=== PATIENT | male | born 1960 | race Caucasian/White ===

== ENCOUNTER → 2021-09-19 | Outpatient (REF) | payer OTHER | LOC: M SFHCDERM 12:40 | PROVIDERS: ATTEND Nurse Practitioner Family | DX: L81.4 Other melanin hyperpigmentation (principal); L57.8 Other skin changes due to chronic exposure to nonionizing radiation ==

== ENCOUNTER 2023-11-20 07:21 | Day surgery (SDC) | payer OTHER ==
[~2023-11-20] VITALS: Ht 182.9 cm; Wt 108.9 kg
[~2023-11-20 07:21] MED LIST: ASPI81TA26 PO; D3 S20002 PO; LOSA100T46 PO; METO1TAB32 PO; NS 1,000 ML IV ONE; ROSU10TA61 PO
[2023-11-20] MEDS ORDERED: LIDOCAINE 2% 100MG/5ML SDV (FOR ANES.) As Ordered ONE (08:44)
[2023-11-20] MEDS ORDERED: propofoL 200 MG/20 ML VIAL As Ordered ONE (08:44)
[2023-11-20 09:26] VITALS: TEMP 97.9
[2023-11-20 09:40] VITALS: BP 155/91; O2SAT 97
== END 2023-11-20 09:44 | disposition home or self-care (01) ==
LOC: M OPP 07:21
PROVIDERS: ATTEND Internal Medicine Gastroenterology
DX: Z12.11 Encounter for screening for malignant neoplasm of colon (principal); D12.0 Benign neoplasm of cecum; K64.0 First degree hemorrhoids; I34.9 Nonrheumatic mitral valve disorder, unspecified; I10 Essential (primary) hypertension; Z79.1 Long term (current) use of non-steroidal anti-inflammatories (NSAID); Z79.82 Long term (current) use of aspirin; Z79.899 Other long term (current) drug therapy